=== PATIENT | female | born 1960 | race Caucasian/White ===

== ENCOUNTER → 2016-11-04 | Outpatient (CLI) | payer BC | LOC: MC.RAD 10:08 | DX: Z12.31 Encounter for screening mammogram for malignant neoplasm of breast (principal) ==

== ENCOUNTER → 2017-12-10 | Outpatient (CLI) | payer BC | LOC: MC.RAD 09:31 | DX: Z12.31 Encounter for screening mammogram for malignant neoplasm of breast (principal) ==

== ENCOUNTER → 2020-05-30 | Outpatient (CLI) | payer BC | LOC: MC.RAD 05-09 14:15 | DX: Z12.31 Encounter for screening mammogram for malignant neoplasm of breast (principal) ==